=== PATIENT | female | born 1990 | race Caucasian/White ===

== ENCOUNTER 2020-02-18 19:45 | Emergency (ER) | payer OTHER ==
[~2020-02-18] VITALS: Ht 160 cm; Wt 117.9 kg
[2020-02-18] MEDS ORDERED: PAXIL 20 MG TAB20 MG PO (20:02)
[2020-02-18 20:03] LABS: URINE BILIRUBIN NEGATIVE (Negative); URINE BLOOD 3+ (Negative); URINE CLARITY SL CLOUDY; URINE COLOR YELLOW; URINE GLUCOSE-RANDOM NEGATIVE (Negative); URINE KETONES NEGATIVE (Negative); URINE LEUKOCYTES-REFLEX NEGATIVE (Negative); URINE NITRITE-REFLEX NEGATIVE (Negative); URINE PROTEIN NEGATIVE (Negative); URINE SPECIFIC GRAVITY >= 1.030 (1.005-1.030); URINE UROBILINOGEN 0.2 E.U./dl (0.2-1.0)
[2020-02-18 20:08] LABS: BACTERIA-REFLEX >30 Many /HPF (None Seen); CASTS None Seen /LPF (None Seen); CRYSTALS None Seen /LPF (None Seen); MUCUS 4-6 Moderate strn/LPF (None Seen); SQUAMOUS >10 Many /LPF (0-3); URINE RBC >20 Many /HPF (0-2); URINE WBC-REFLEX 0-5 Rare /HPF (0-5)
[2020-02-18 20:36] LABS: ABSOLUTE BASOPHILS 0.1 thou/uL (0.0-0.2); ABSOLUTE EOSINOPHILS 0.3 thou/uL (0.0-0.7); ABSOLUTE LYMPHOCYTES 3.3 thou/uL (0.8-5.3); ABSOLUTE MONOCYTES 0.9 thou/uL (0.0-1.2); ABSOLUTE NEUTROPHILS 8.1 thou/uL (1.6-8.1); BASOPHILS 0.8 %; EOSINOPHILS 2.2 %; HEMATOCRIT 41.2 % (37.0-47.0); LYMPHOCYTES 25.7 %; MCH 31.4 pg (26.0-34.0); MCHC 34.1 g/dL (28.0-37.0); MCV 92.2 fL (80.0-100.0); MPV 7.7 fl. (7.2-11.1); NUCLEATED RBCS 0 /100WBC; PLATELET COUNT* 340 thou/uL (150-400); POLYS 64.3 %; RBC 4.46 mil/uL (4.20-5.00); RDW-CV 14.4 % (10.5-14.5); WBC 12.7 thou/uL (4.0-11.0)
[2020-02-18 20:45] LABS: CALCIUM 8.7 mg/dL (8.5-10.1); CREATININE 0.6 mg/dL (0.6-1.3); POTASSIUM 3.9 mmol/L (3.5-5.1)
[2020-02-18] MEDS ORDERED: NORCO 5-325 TA1 EAC1 PO (22:00)
[2020-02-18] MEDS ORDERED: BACTRIM DS TAB1 EACH PO (22:00)
[2020-02-18] MEDS ORDERED: ZOFRAN ODT4 MG PO (22:01)
[2020-02-18 22:16] VITALS: BP 127/86
== END 2020-02-18 22:17 | disposition home or self-care (01) ==
LOC: M.ERS 19:45
PROVIDERS: Emergency Medicine
DX: M54.5 Low back pain (principal); R30.0 Dysuria; Z90.49 Acquired absence of other specified parts of digestive tract; Z87.442 Personal history of urinary calculi; Z88.6 Allergy status to analgesic agent; Z88.8 Allergy status to other drugs, medicaments and biological substances